=== PATIENT | male | born 1980 | race Caucasian/White ===

== ENCOUNTER 2016-10-13 16:22 | Emergency (ER) | payer SELFPAY ==
[2016-10-13 18:43] VITALS: BP 142/86
== END 2016-10-13 18:43 | disposition home or self-care (01) ==
LOC: ED 16:22
DX: S61.237A Puncture wound without foreign body of left little finger without damage to nail, initial encounter (principal); W31.89XA Contact with other specified machinery, initial encounter; Y93.89 Activity, other specified; Y92.89 Other specified places as the place of occurrence of the external cause; Y99.0 Civilian activity done for income or pay
CPT/HCPCS: A4570